=== PATIENT | female | born 1955 | race Caucasian/White ===

== ENCOUNTER 2017-03-11 14:12 | Emergency (ER) | payer OTHER ==
[~2017-03-11] VITALS: Ht 157.5 cm; Wt 70.3 kg
[~2017-03-11 14:12] MED LIST: SIMV20TA1 PO
[2017-03-11 15:10] VITALS: BP 148/78
--- NOTE | 2017-03-11 15:54 | NUR ---
PT TO BED 8
--- NOTE | 2017-03-11 16:05 | NUR ---
Patient being evaluated by Dr. Vang at bedside.
[2017-03-11] MEDS ORDERED: HYDROcodone/APAP 5/325 MG 1 TAB TAB PO ONE (16:10)
[2017-03-11] MEDS ORDERED: ASPIRIN 325 MG TAB PO ONE (16:10)
--- NOTE | 2017-03-11 16:11 | NUR ---
61/F c/o right shoulder pain since yesterday. Pt denies injury or trauma. No deformity noted. AOX4, ambulatory with steady gait. VSS.
--- NOTE | 2017-03-11 16:15 | NUR ---
Lab at bedside for blood draw.
[2017-03-11 16:23] LABS: BASOPHILS # (AUTO) 0.2 K/uL (0.00-0.22); BASOPHILS % (AUTO) 2.7 % (0.0-2.0); EOSINOPHILS # (AUTO) 0.2 K/uL (0-0.4); EOSINOPHILS % (AUTO) 2.5 % (0.0-4.0); HEMATOCRIT 41.5 % (36-48); HEMOGLOBIN 13.8 g/dL (12.0-16.0); LYMPHOCYTES # (AUTO) 2.7 K/uL (2.5-16.5); LYMPHOCYTES % (AUTO) 34.5 % (20.5-51.1); MEAN CORPUSCULAR HEMOGLOBIN 29 pg (27-31); MEAN CORPUSCULAR HGB CONC 33 g/dL (33-37); MEAN CORPUSCULAR VOLUME 88 fL (80-94); MONOCYTES # (AUTO) 0.5 K/uL (0.8-1.0); MONOCYTES % (AUTO) 6.2 % (1.7-9.3); NEUTROPHILS # (AUTO) 4.3 K/uL (1.8-7.7); NEUTROPHILS % (AUTO) 54.1 % (42.2-75.2); PLATELET COUNT (AUTO) 218 K/uL (140-450); RED CELL DISTRIBUTION WIDTH 12.7 % (11.6-13.7); WHITE BLOOD COUNT (AUTO) 7.9 K/uL (4.8-10.8)
[2017-03-11 16:42] LABS: ALBUMIN 3.8 g/dL (3.4-5.0); ANION GAP 12.8 (8-16); CARBON DIOXIDE 28.2 mmol/L (21-32); CREATININE 0.6 mg/dL (0.6-1.3); TOTAL BILIRUBIN 0.2 mg/dL (0.0-1.0)
[2017-03-11 17:29] VITALS: BP 140/76
--- NOTE | 2017-03-11 17:29 | NUR ---
Patient discharged with v/s stable. Written and verbal after care instructions given and explained. Patient alert, oriented and verbalized understanding of instructions. Ambulatory with steady gait. All questions addressed prior to discharge. ID band removed. Patient advised to follow up with PMD. Rx of Naproxen 500mg given. Patient educated on indication of medication including possible reaction and side effects. Opportunity to ask questions provided and answered.
== END 2017-03-11 17:29 | disposition home or self-care (01) ==
LOC: MED 14:12
DX: R07.89 Other chest pain (principal); M25.511 Pain in right shoulder; Z79.899 Other long term (current) drug therapy
CPT/HCPCS: 36415; 71020; 80053; 84484; 85025; 85379; 93005; 99285

== ENCOUNTER 2017-10-20 12:01 | Emergency (ER) | payer OTHER ==
[~2017-10-20] VITALS: Ht 157.5 cm; Wt 75.3 kg
[2017-10-20 12:06] VITALS: BP 146/59
--- NOTE | 2017-10-20 12:14 | NUR ---
Pt taken to bed 12.
[2017-10-20] MEDS ORDERED: KETOROLAC 30 MG/ML VIAL IVP ONE (12:20)
[2017-10-20] MEDS ORDERED: PROCHLORPERAZINE 10 MG/2 ML VIAL IVP ONE (12:20)
[2017-10-20] MEDS ORDERED: NACL 0.9% 1,000 ML IV ONE (12:20)
--- NOTE | 2017-10-20 12:48 | NUR ---
pt taken to ct via w/c accompanied by radio repairer
[2017-10-20 12:58] LABS: BASOPHILS # (AUTO) 0.1 K/uL (0.00-0.22); BASOPHILS % (AUTO) 0.8 % (0.0-2.0); EOSINOPHILS # (AUTO) 0.2 K/uL (0-0.4); EOSINOPHILS % (AUTO) 2.8 % (0.0-4.0); HEMATOCRIT 40.2 % (36-48); HEMOGLOBIN 13.1 g/dL (12.0-16.0); LYMPHOCYTES # (AUTO) 2.4 K/uL (2.5-16.5); LYMPHOCYTES % (AUTO) 34.5 % (20.5-51.1); MEAN CORPUSCULAR HEMOGLOBIN 29 pg (27-31); MEAN CORPUSCULAR HGB CONC 33 g/dL (33-37); MEAN CORPUSCULAR VOLUME 89.9 fL (80-94); MONOCYTES # (AUTO) 0.4 K/uL (0.8-1.0); MONOCYTES % (AUTO) 5.8 % (1.7-9.3); NEUTROPHILS # (AUTO) 3.9 K/uL (1.8-7.7); NEUTROPHILS % (AUTO) 56.1 % (42.2-75.2); PLATELET COUNT (AUTO) 208 K/uL (140-450); RED BLOOD CELL COUNT(AUTO) 4.47 MIL/uL (4.20-5.40); RED CELL DISTRIBUTION WIDTH 13.4 % (11.6-13.7); WHITE BLOOD COUNT (AUTO) 6.9 K/uL (4.8-10.8)
--- NOTE | 2017-10-20 13:02 | NUR ---
PT COMES TO ER WITH COMPLAINTS OF DIZZINESS X 2 DAYS, WORSE WHEN GETTING UP FROM A SITTING OR LAYING DOWN POSITION, STATES "IT FEELS LIKE THE ROOM IS SPINNING". WHEN THIS HAPPENED TODAY SHE FELT SOME PRESSURE LIKE PAIN 8/10 TO THE RIGHT ANTERIOR CHEST WALL WITH MILD SOB. RESP ARE EVEN AND UNLABORED AT THIS TIME, BUT PT REPORTS MILD SOB WITH MILD EXERTION. SKIN W/D/I. PT ALSO REPORTS NAUSEA, DENIES VOMITTING/FEVERS/CHILLS. ABD SOFT, NT, +BS X 4 QUADS. WILL CONT TO MONITOR, PT ON MONITOR-SR
[2017-10-20 13:15] LABS: ALBUMIN 3.7 g/dL (3.4-5.0); ANION GAP 11.8 (8-16); CARBON DIOXIDE 29.9 mmol/L (21-32); CREATININE 0.6 mg/dL (0.6-1.3); POTASSIUM 3.7 mmol/L (3.5-5.1); TOTAL BILIRUBIN 0.3 mg/dL (0.0-1.0)
[2017-10-20 13:40] VITALS: BP 129/61
[2017-10-20 13:41] LABS: PROTHROMBIN TIME 10.8 secs (10.8-13.4)
--- NOTE | 2017-10-20 13:41 | NUR ---
Patient discharged with v/s stable. Written and verbal after care instructions given and explained. Patient alert, oriented and verbalized understanding of instructions. Ambulatory with steady gait. All questions addressed prior to discharge. ID band removed. Patient advised to follow up with PMD. Rx of ANTIVERT given. Patient educated on indication of medication including possible reaction and side effects. Opportunity to ask questions provided and answered.
== END 2017-10-20 13:41 | disposition home or self-care (01) ==
LOC: MED 12:01
DX: R51 Headache (principal); R42 Dizziness and giddiness; R11.0 Nausea; E78.5 Hyperlipidemia, unspecified; R73.03 Prediabetes
CPT/HCPCS: 36415; 70450; 80053; 83880; 84484; 85025; 85610; 85730; 93005; 96361; 96374; 96375; 99285; J0780; J1885; J7030

== ENCOUNTER 2017-10-22 09:29 | Emergency (ER) | payer OTHER ==
[~2017-10-22] VITALS: Ht 157.5 cm; Wt 70.3 kg
[2017-10-22 09:34] VITALS: BP 131/83
--- NOTE | 2017-10-22 09:39 | NUR ---
PATIENT AMBULATED TO BED 3 AT THIS TIME.
--- NOTE | 2017-10-22 09:40 | NUR ---
62 F PRESENTS TO ER WITH C/O ALLERGIC REACTION x 3 HOURS AGO. PT DENIES INGESTING ANY NEW FOOD OR MEDICATIONS, DENIES A CHANGE IN DETERGENT. PT A&O X 4. GCS 15. AMBULATORY W/ STEADY GAIT. PT DENIES ANY SOB OR DYSPNEA AT THIS TIME. AIRWAY IS PATENT. MINOR SWELLING NOTED TO THE FOREHEAD BETWEEN THE EYEBROWS. RESPIRATIONS ARE EVEN AND UNLABORED AT THIS TIME. LUNG SOUNDS ARE BILATERALLY CLEAR AT THIS TIME. ER MD ELDER NOTIFIED OF PT STATUS. SAFETY PRECAUTIONS IN PLACE. PT NEEDS MET AT THIS TIME. WILL CONTINUE TO MONITOR. HX: HIGH CHOLESTEROL MEDS: SIMVASTATIN 20MG, OTC BENADRYL
[2017-10-22 11:04] VITALS: BP 131/78
--- NOTE | 2017-10-22 11:05 | NUR ---
Patient discharged with v/s stable. Written and verbal after care instructions given and explained. Patient alert, oriented and verbalized understanding of instructions. Ambulatory with steady gait. All questions addressed prior to discharge. ID band removed. Patient advised to follow up with PMD. Rx of Benadryl and Prednisone given. Patient educated on indication of medication including possible reaction and side effects. Opportunity to ask questions provided and answered.
== END 2017-10-22 11:05 | disposition home or self-care (01) ==
LOC: MED 09:29
DX: T78.40XA Allergy, unspecified, initial encounter (principal); E78.00 Pure hypercholesterolemia, unspecified; X58.XXXA Exposure to other specified factors, initial encounter
CPT/HCPCS: 99283

== ENCOUNTER 2018-07-01 19:43 | Emergency (ER) | payer OTHER ==
[~2018-07-01] VITALS: Ht 157.5 cm; Wt 70.3 kg
[2018-07-01 19:43] VITALS: BP 137/63
--- NOTE | 2018-07-01 19:43 | NUR ---
Patient BIBA BLS, transferred to bed 7. RN evaluating patient at bedside.
--- NOTE | 2018-07-01 19:45 | NUR ---
63 yo females biba c/o allergic reaction. pt stated she was eating tacos/ salsa and then started to feel itchy all over scalp. pt denies pmh and has nka. pt aaox4, sitting up in bed. lungs clear even unlabored. denies cp/ sob @ this time. pt states she feels better and does not have the itchiness @ this time. no acute distress noted.
--- NOTE | 2018-07-01 19:58 | NUR ---
Dr. Angeles evaluating patient at bedside.
--- NOTE | 2018-07-01 20:32 | NUR ---
Patient discharged with v/s stable. Written and verbal after care instructions given and explained. Patient alert, oriented and verbalized understanding of instructions. Ambulatory with steady gait. All questions addressed prior to discharge. ID band removed. Patient advised to follow up with PMD. Rx of Benadryl given. Patient educated on indication of medication including possible reaction and side effects. Opportunity to ask questions provided and answered.
[2018-07-01 20:41] VITALS: BP 127/63
== END 2018-07-01 20:32 | disposition home or self-care (01) ==
LOC: MED 19:43
DX: T78.1XXA Other adverse food reactions, not elsewhere classified, initial encounter (principal); Z79.899 Other long term (current) drug therapy
CPT/HCPCS: 99283

== ENCOUNTER 2018-10-13 10:58 | Emergency (ER) | payer OTHER ==
[~2018-10-13] VITALS: Ht 157.5 cm; Wt 72.6 kg
[2018-10-13 11:12] VITALS: BP 154/78
--- NOTE | 2018-10-13 11:17 | NUR ---
PT AMBULATED TO ER BED 6
[2018-10-13] MEDS ORDERED: hydrOXYzine HCL 25 MG TAB PO ONE (11:30)
[2018-10-13] MEDS ORDERED: KETOROLAC 60 MG/2 ML VIAL IM ONE (11:30)
[2018-10-13] MEDS ORDERED: MECLIZINE 25 MG TAB PO ONE (11:30)
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
--- NOTE | 2018-10-13 11:36 | NUR ---
PT TAKEN TO CT VIA WHEELCHAIR
[2018-10-13 14:34] VITALS: BP 130/73
== END 2018-10-13 14:35 | disposition home or self-care (01) ==
LOC: MED 10:58
DX: S00.33XA Contusion of nose, initial encounter (principal); M79.641 Pain in right hand; E78.00 Pure hypercholesterolemia, unspecified; Z79.899 Other long term (current) drug therapy; W18.09XA Striking against other object with subsequent fall, initial encounter; Y93.02 Activity, running; Y92.89 Other specified places as the place of occurrence of the external cause; Y99.8 Other external cause status
CPT/HCPCS: 70450; 70486; 73130; 96372; 99284; J1885; J8597

== ENCOUNTER 2022-05-27 11:06 | Emergency (ER) | payer OTHER, MEDICAID ==
[~2022-05-27] VITALS: Ht 157.5 cm; Wt 70.9 kg
[~2022-05-27 11:06] MED LIST changes: +SIMV-372 PO; -SIMV20TA1 PO
[2022-05-27 11:19] VITALS: BP 161/64
[2022-05-27] MEDS ORDERED: NITR100C7 PO (13:25)
[2022-05-27 13:37] VITALS: BP 159/72
== END 2022-05-27 13:37 | disposition home or self-care (01) ==
LOC: MED 11:06
DX: M47.896 Other spondylosis, lumbar region (principal); N39.0 Urinary tract infection, site not specified; E11.9 Type 2 diabetes mellitus without complications; Z79.899 Other long term (current) drug therapy
CPT/HCPCS: 72100; 73562; 81002; 99284

== ENCOUNTER 2022-11-10 09:13 | Emergency (ER) | payer OTHER ==
[~2022-11-10] VITALS: Ht 157.5 cm; Wt 72.6 kg
[~2022-11-10 09:13] MED LIST changes: +NITR100C7 PO
[2022-11-10 09:29] VITALS: BP 141/66
--- NOTE | 2022-11-10 09:38 | NUR ---
ambulated to bed 1
--- NOTE | 2022-11-10 09:38 | NUR ---
PT AMBULATED TO BED 1
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
[2022-11-10] MEDS ORDERED: ACETAMINOPHEN EXTRA STRENGTH 500 MG TAB PO ONE (10:00)
[2022-11-10] MEDS ORDERED: DEXAMETHASONE 10 MG/ML VIAL IM ONE (10:00)
[2022-11-10] MEDS ORDERED: NAPR-1704 PO (10:38)
[2022-11-10 11:32] VITALS: BP 128/80
--- NOTE | 2022-11-10 11:32 | NUR ---
Patient discharged with v/s stable. Written and verbal after care instructions FOR CHEST WALL PAIN given and explained. Patient verbalized understanding. Ambulatory with steady gait. All questions addressed prior to discharge. Advised to follow up with PMD.
--- NOTE | 2022-11-10 11:40 | NUR ---
The patient's care was reviewed and supervised by Modesta Harrington RN.
== END 2022-11-10 11:32 | disposition home or self-care (01) ==
LOC: MED 09:13
DX: R07.89 Other chest pain (principal); M54.9 Dorsalgia, unspecified; Z79.899 Other long term (current) drug therapy
CPT/HCPCS: 71045; 93005; 96372; 99283; J1100; Q0092

== ENCOUNTER 2022-11-17 16:45 | Inpatient (IN) | payer OTHER ==
[~2022-11-17] VITALS: Ht 157.5 cm; Wt 72.1 kg
--- NOTE | 2022-11-17 16:51 | NUR ---
AMB. TO BED W NO DISTRESS.
[2022-11-17 16:57] VITALS: BP 154/67
[2022-11-17] MEDS ORDERED: ACETAMINOPHEN 325 MG TAB PO ONE (17:30)
[2022-11-17] MEDS ORDERED: LIDOCAINE 5% 1 EA PATCH TP ONE (17:30)
--- NOTE | 2022-11-17 17:52 | NUR ---
X-Ray at bedside.
[2022-11-17 17:55] LABS: BASOPHILS # (AUTO) 0.1 K/uL (0.00-0.22); BASOPHILS % (AUTO) 0.5 % (0.0-2.0); EOSINOPHILS # (AUTO) 0.1 K/uL (0-0.4); EOSINOPHILS % (AUTO) 0.7 % (0.0-4.0); HEMATOCRIT 38.5 % (36-48); HEMOGLOBIN 12.8 g/dL (12.0-16.0); LYMPHOCYTES # (AUTO) 4.3 K/uL (2.5-16.5); LYMPHOCYTES % (AUTO) 34.5 % (20.5-51.1); MEAN CORPUSCULAR HEMOGLOBIN 30 pg (27-31); MEAN CORPUSCULAR HGB CONC 33 g/dL (33-37); MEAN CORPUSCULAR VOLUME 88.9 fL (80-94); MONOCYTES # (AUTO) 1.1 K/uL (0.8-1.0); MONOCYTES % (AUTO) 8.9 % (1.7-9.3); NEUTROPHILS # (AUTO) 6.9 K/uL (1.8-7.7); NEUTROPHILS % (AUTO) 55.4 % (42.2-75.2); PLATELET COUNT (AUTO) 255 K/uL (140-450); RED BLOOD CELL COUNT(AUTO) 4.34 MIL/uL (4.20-5.40); RED CELL DISTRIBUTION WIDTH 13.4 % (11.6-13.7); WHITE BLOOD COUNT (AUTO) 12.4 K/uL (4.8-10.8)
[2022-11-17 18:14] LABS: ALBUMIN 3.4 g/dL (3.4-5.0); ANION GAP 8.3 (8-16); CARBON DIOXIDE 27.7 mmol/L (21-32); CREATININE 0.7 mg/dL (0.6-1.3); TOTAL BILIRUBIN 0.2 mg/dL (0.0-1.0)
--- NOTE | 2022-11-17 19:35 | NUR ---
67 Y/O F from home presents with chest pain 8/10 intermittent, tightness. pt denies any NVD, skin intact, A&Ox4, pt stated she has pain when ambulatory. pmh-hyperlipidema, arthritis NKA
--- NOTE | 2022-11-17 19:48 | NUR ---
pt ambulatory to restroom
--- NOTE | 2022-11-17 20:40 | NUR ---
Dr. Frazier examining patient.
[2022-11-17] MEDS ORDERED: KETOROLAC 30 MG/ML VIAL IVP ONE (20:45)
--- NOTE | 2022-11-17 20:54 | NUR ---
COVID-19 swab collected and sent to lab.
--- NOTE | 2022-11-17 21:05 | NUR ---
covid swabs walked to lab.
--- NOTE | 2022-11-17 23:10 | NUR ---
Patient will be admitted to care of Dr. Gibbons. Admited to tele. Will go to room 106B. Belongings list completed. Report to Lam BLANCO.
[2022-11-17] MEDS ORDERED: ACETAMINOPHEN 325 MG TAB PO PRN (23:15)
[2022-11-17] MEDS ORDERED: ONDANSETRON 4 MG/2 ML VIAL IM/IVP PRN (23:15)
[2022-11-17] MEDS ORDERED: DOCUSATE SODIUM 100 MG GELCAP PO PRN (23:15)
[2022-11-17] MEDS ORDERED: ZOLPIDEM 5 MG TAB PO PRN (23:15)
[2022-11-17] MEDS ORDERED: guaiFENesin DM 200/20 MG-10 ML 10 ML UDC PO PRN (23:15)
[2022-11-17] MEDS ORDERED: POTASSIUM CHLORIDE 10 MEQ TABER PO PRN (23:15)
[2022-11-17] MEDS: NACL 0.9% 1,000 ML IV SCH (23:15)
[2022-11-17] MEDS ORDERED: PNEUMOCOCCAL VACCINE 23 MCG/0.5 ML VIAL IMVAC SCH (23:55)
[2022-11-17 23:57] LABS: PROTHROMBIN TIME 9.7 secs (10.8-13.4)
[2022-11-18] VITALS: BP 105/48
[2022-11-18 00:32] LABS: CHOL/HDL RATIO 4.3 (1-4.5); FREE T4 (FREE THYROXINE) 1.08 ng/dL (0.76-1.46)
[2022-11-18 00:33] LABS: PHOSPHORUS 2.8 mg/dL (2.5-4.9)
[2022-11-18 00:34] LABS: THYROID STIMULATING HORMONE 1.6 uIU/mL (0.34-3.74)
[2022-11-18 00:42] LABS: APPEARANCE,URINE CLEAR (CLEAR); BILIRUBIN,URINE NEGATIVE (NEGATIVE); BLOOD, URINE NEGATIVE (NEGATIVE); COLOR,URINE YELLOW (YELLOW); LEUKOCYTE ESTERASE ,URINE NEGATIVE (NEGATIVE); NITRITE, URINE NEGATIVE (NEGATIVE); UGLUCOSE NEGATIVE (NEGATIVE)
[2022-11-18] MEDS: MORPHINE SULFATE 2 MG/ML SYR IVP PRN ×4 (01:02→20:27)
[2022-11-18 01:08] LABS: BARBITURATE, URINE NEGATIVE ng/ml (NEG <=200)
[2022-11-18 01:09] LABS: OPIATE, URINE NEGATIVE ng/mL (NEG <=2000); PHENCYCLIDINE SCREEN,URINE NEGATIVE ng/mL (NEG <=25)
[2022-11-18 01:10] LABS: CANNABINOID, URINE NEGATIVE ng/mL (NEG <=50)
[2022-11-18 01:13] LABS: COCAINE, URINE NEGATIVE ng/mL (NEG <=300)
[2022-11-18 01:17] LABS: BENZODIAZEPINE, URINE NEGATIVE ng/mL (NEG <=200)
[2022-11-18 04:00] VITALS: BP 153/74
[2022-11-18 06:44] LABS: BASOPHILS % (AUTO) 0.4 % (0.0-2.0); EOSINOPHILS # (AUTO) 0.2 K/uL (0-0.4); EOSINOPHILS % (AUTO) 2.7 % (0.0-4.0); HEMATOCRIT 39.3 % (36-48); HEMOGLOBIN 13.1 g/dL (12.0-16.0); LYMPHOCYTES % (AUTO) 49.8 % (20.5-51.1); MEAN CORPUSCULAR HEMOGLOBIN 30 pg (27-31); MEAN CORPUSCULAR HGB CONC 33 g/dL (33-37); MEAN CORPUSCULAR VOLUME 89.1 fL (80-94); MONOCYTES # (AUTO) 0.7 K/uL (0.8-1.0); MONOCYTES % (AUTO) 8.8 % (1.7-9.3); NEUTROPHILS # (AUTO) 3.1 K/uL (1.8-7.7); NEUTROPHILS % (AUTO) 38.3 % (42.2-75.2); PLATELET COUNT (AUTO) 230 K/uL (140-450); RED BLOOD CELL COUNT(AUTO) 4.41 MIL/uL (4.20-5.40); RED CELL DISTRIBUTION WIDTH 13.4 % (11.6-13.7)
[2022-11-18 06:59] LABS: CARBON DIOXIDE 30.9 mmol/L (21-32); CREATININE 0.7 mg/dL (0.6-1.3)
[2022-11-18 07:27] LABS: ANION GAP 8.3 (8-16); POTASSIUM 4.2 mmol/L (3.5-5.1)
--- NOTE | 2022-11-18 07:30 | NUR ---
RECEIVED REPORT FROM GREIGE MENDER NURSE. POC DISCUSSED. PT CURRENTLY RESTING WITH CHEST RISING AND FALLING. NO ACUTE S/S OF DISTRESS. ALL SAFETY MEASURES IN PLACE, CALL LIGHT WITHIN REACH.
[2022-11-18 08:00] VITALS: BP 139/65
--- NOTE | 2022-11-18 08:15 | NUR ---
PHARMACIST STATED PNA VACCINE PLACED IN FRIDGE TO BE ADMINISTERED AT DISCHARGE. WILL ENDORSE TO UPCOMING SHIFTS.
[2022-11-18] MEDS: PANTOPRAZOLE 40 MG TABEC PO SCH (08:23)
--- NOTE | 2022-11-18 09:04 | NUR ---
PATIENT HAS BEEN SCREENED AND CATEGORIZED LOW NUTRITION RISK. PATIENT WILL BE SEEN WITHIN 7 DAYS OF ADMISSION. 11/17/22-11/24/22 REVIEWED BY PK MCKEON [address]
--- NOTE | 2022-11-18 09:54 | NUR ---
PT INFORMED CHEST PAIN IS 5/10. OFFERED HER NORCO FOR PAIN. PT DECLINED PAIN MED.
[2022-11-18] MEDS: ASPIRIN 81 MG TAB.CHEW PO SCH (10:30)
[2022-11-18 12:00] VITALS: BP 127/67
--- NOTE | 2022-11-18 12:41 | NUR ---
DC PLANNING ASSESSMENT COMPLETE PLEASE REFER TO ASSESSMENT FOR ADDITIONAL DETAILS DC PLAN IS FOR PT TO RETURN HOME WITH FAMILY PROVIDING TRANSPORTATION, WHEN MEDICALLY CLEARED BY PHYSICIAN Addendum: 11/18/22 at 1242 by Phil LEHMAN Amended: Links added.
--- NOTE | 2022-11-18 14:21 | NUR ---
PT HAVING CHEST PAIN WHEN TAKING A DEEP BREATH 02/18. GAVE MORPHINE FOR PAIN.
[2022-11-18 16:00] VITALS: BP 147/63
[2022-11-18] MEDS: ATORVASTATIN 20 MG TAB PO SCH (17:06)
[2022-11-18] MEDS: NACL 0.9% 1,000 ML IV SCH (17:06)
--- NOTE | 2022-11-18 19:00 | NUR ---
RECEIVED PT FROM MORNING SHIFT NURSE. PT IS AOX4, AMBULATORY, RWANDAN SPEAKING, ABLE TO VERBALIZE NEEDS AND ABLE TO FOLLOW COMMANDS. PT IS ON ROOM AIR AND ON CARDIAC DIET. PT HAS IV ON RIGHT FOREARM GAUGE 22 RUNNING WITH NS AT 60ML/HR. NO COMPLAIN OF PAIN. NO S/S OF RESPIRATORY DISTRESS. ALL SAFETY MEASURES IMPLEMENTED. BED IN LOW POSITION, BED WHEELS ON LOCK AND CALL LIGHT WITHIN REACH.
[2022-11-18 20:00] VITALS: BP 140/61
--- NOTE | 2022-11-18 20:27 | NUR ---
PRN PAIN MEDICATION WAS GIVEN TO PT DUE TO CHEST PAIN WITH PAIN SCALE OF 6/10. ALL SAFETY MEASURES IMPLEMENTED. BED IN LOW POSITION, BED WHEELS ON LOCK AND CALL LIGHT WITHIN REACH.
--- NOTE | 2022-11-19 | NUR ---
PT IS ON SLEEP. CHEST RISE AND FALL SYMMTERICALLY NOTED. RESPIRATION IS EVEN AND UNLABORED. ALL SAFETY MEASURES IMPLEMENTED. BED IN LOW POSITION, BED WHEELS ON LOCK AND CALL LIGHT WITHIN REACH.
--- NOTE | 2022-11-19 02:00 | NUR ---
ASSISTED PT TO RESTROOM. NO COMPLAIN OF PAIN. NO S/S OF RESPIRATORY DISTRESS NOTED. ALL SAFETY MEASURES IMPLEMENTED. BED IN LOW POSITION, BED WHEELS ON LOCK AND CALL LIGHT WITHIN REACH.
--- NOTE | 2022-11-19 04:00 | NUR ---
CHECKED THE PT STILL ON SLEEP. CHEST RISE AND FALL SYMMETRICALLY NOTED. RESPIRATION IS EVEN AND UNLABORED. ALL SAFETY MEASURES IMPLEMENTED. BED IN LOW POSITION, BED WHEELS ON LOCK AND CALL LIGHT WITHIN REACH.
[2022-11-19 06:43] LABS: BASOPHILS # (AUTO) 0.1 K/uL (0.00-0.22); BASOPHILS % (AUTO) 0.7 % (0.0-2.0); EOSINOPHILS # (AUTO) 0.2 K/uL (0-0.4); EOSINOPHILS % (AUTO) 2.2 % (0.0-4.0); HEMATOCRIT 41.9 % (36-48); LYMPHOCYTES # (AUTO) 2.8 K/uL (2.5-16.5); LYMPHOCYTES % (AUTO) 41.3 % (20.5-51.1); MEAN CORPUSCULAR HEMOGLOBIN 30 pg (27-31); MEAN CORPUSCULAR HGB CONC 34 g/dL (33-37); MEAN CORPUSCULAR VOLUME 89.5 fL (80-94); MONOCYTES # (AUTO) 0.5 K/uL (0.8-1.0); MONOCYTES % (AUTO) 7.7 % (1.7-9.3); NEUTROPHILS # (AUTO) 3.3 K/uL (1.8-7.7); NEUTROPHILS % (AUTO) 48.1 % (42.2-75.2); PLATELET COUNT (AUTO) 239 K/uL (140-450); RED BLOOD CELL COUNT(AUTO) 4.68 MIL/uL (4.20-5.40); RED CELL DISTRIBUTION WIDTH 13.2 % (11.6-13.7); WHITE BLOOD COUNT (AUTO) 6.9 K/uL (4.8-10.8)
[2022-11-19 07:00] LABS: ANION GAP 9.9 (8-16); CARBON DIOXIDE 30.4 mmol/L (21-32); CREATININE 0.6 mg/dL (0.6-1.3); POTASSIUM 4.3 mmol/L (3.5-5.1)
--- NOTE | 2022-11-19 07:33 | NUR ---
PT IS STABLE. ENDORSED PT TO MORNING SHIFT NURSE FOR CONTINUITY OF CARE.
[2022-11-19 08:00] VITALS: BP 151/76
--- NOTE | 2022-11-19 08:00 | NUR ---
received patient resting comfortably in bed, not in any form of distress,shift assessment done and documented, plan of care discussed, will continue to monitor.
[2022-11-19] MEDS: NACL 0.9% 1,000 ML IV SCH (08:35)
[2022-11-19 09:07] LABS: T4 (THYROXINE) 8.2 ug/dL (4.5-12.0)
[2022-11-19] MEDS: ASPIRIN 81 MG TAB.CHEW PO SCH (10:02)
[2022-11-19] MEDS: PANTOPRAZOLE 40 MG TABEC PO SCH (10:02)
[2022-11-19] MEDS ORDERED: KETOROLAC 30 MG/ML VIAL IM SCH (10:19)
--- NOTE | 2022-11-19 12:50 | NUR ---
DC PLANN[age] YRS OLD FEMALE PATIENT WAS ADMITTED FROM HOME WITH A DX OF CHEST PAIN. PATIENT HAS A HX OF HLD. CXR SHOWED PNEUMONIA. RAPID COVID TEST NEGATIVE. ADMINISTERED IVF, IV ABX ROCEPHIN. CONSULTED WITH [employer] PL[employer] SPECIALIST. DC PLAN TO GO HOME WHEN STABLE. CM TO FOLLOW
[2022-11-19] MEDS: HYDROcodone/APAP 7.5/325 MG 1 TAB PO PRN (15:46)
[2022-11-19 16:00] VITALS: BP 134/72
[2022-11-19] MEDS: ATORVASTATIN 20 MG TAB PO SCH (17:52)
--- NOTE | 2022-11-19 19:30 | NUR ---
RECEIVED REPORT FROM DAY SHIFT NURSE ADZE FOR CONTINUITY OF CARE. PATIENT IS A&O X4. PATIENT IS ON ROOM AIR, BREATHING IS NORMAL WITH SYMMETRICAL RISE AND FALL OF CHEST. IV IS A 22 RFA, RUNNING NS 60. PATIENT IS AWAKE, SITTING SEMI-FOWLERS IN BED VISITING WITH FAMILY. BED IS IN LOWEST POSITION, WHEELS LOCKED, CALL LIGHT IN PLACE. WILL CONTINUE TO OBSERVE PATIENT.
[2022-11-19 20:00] VITALS: BP 120/65
--- NOTE | 2022-11-19 22:00 | NUR ---
PATIENT'S IV BECAME INFILTRATED AND A NEW IV WAS PLACED BY FRANCIS YU. NEW IV IS L WRIST 22G. PATIENT IS CURRENTLY SLEEPING, LYING IN SEMI-FOWLERS POSITION. BREATHING IS NORMAL WITH SYMMETRICAL RISE AND FALL OF CHEST. WILL CONTINUE TO OBSERVE PATIENT.
--- NOTE | 2022-11-20 01:00 | NUR ---
PATIENT HAS BEEN SLEEPING THROUGHOUT THE NIGHT. BREATHING IS NORMAL WITH SYMMETRICAL RISE AND FALL OF CHEST. IV IS STILL RUNNING NS AT 60. WILL CONTINUE TO OBSERVE PATIENT.
[2022-11-20] MEDS: NACL 0.9% 1,000 ML IV SCH (01:15)
[2022-11-20 04:00] VITALS: BP 138/68
--- NOTE | 2022-11-20 05:00 | NUR ---
PATIENT SLEPT THROUGHOUT THE NIGHT. IV IS STILL RUNNING NS AT 60. BREATHING IS NORMAL WITH SYMMETRICAL RISE AND FALL OF CHEST. WILL CONTINUE TO OBSERVE PATIENT.
[2022-11-20 06:49] LABS: BASOPHILS % (AUTO) 0.4 % (0.0-2.0); EOSINOPHILS # (AUTO) 0.2 K/uL (0-0.4); EOSINOPHILS % (AUTO) 1.9 % (0.0-4.0); HEMATOCRIT 40.3 % (36-48); HEMOGLOBIN 13.2 g/dL (12.0-16.0); LYMPHOCYTES # (AUTO) 2.7 K/uL (2.5-16.5); LYMPHOCYTES % (AUTO) 33.3 % (20.5-51.1); MEAN CORPUSCULAR HEMOGLOBIN 29 pg (27-31); MEAN CORPUSCULAR HGB CONC 33 g/dL (33-37); MEAN CORPUSCULAR VOLUME 89.6 fL (80-94); MONOCYTES # (AUTO) 0.6 K/uL (0.8-1.0); MONOCYTES % (AUTO) 7.9 % (1.7-9.3); NEUTROPHILS # (AUTO) 4.6 K/uL (1.8-7.7); NEUTROPHILS % (AUTO) 56.5 % (42.2-75.2); PLATELET COUNT (AUTO) 241 K/uL (140-450); RED BLOOD CELL COUNT(AUTO) 4.49 MIL/uL (4.20-5.40); RED CELL DISTRIBUTION WIDTH 13.2 % (11.6-13.7); WHITE BLOOD COUNT (AUTO) 8.1 K/uL (4.8-10.8)
[2022-11-20 06:56] LABS: ANION GAP 9.5 (8-16); CARBON DIOXIDE 29.9 mmol/L (21-32); CREATININE 0.7 mg/dL (0.6-1.3); POTASSIUM 4.4 mmol/L (3.5-5.1)
--- NOTE | 2022-11-20 07:19 | NUR ---
RECEIVED REPORT FROM NIGHT NURSE JHONATAN FOR CONTINUITY OF CARE. INITIAL ASSESSMENT DONE. ALERT AND ORIENTED X 4. RESP. EVEN AND UNLABORED. IVF INFUSING WELL. IV SITE INTACT TO LT WRIST. NO C/O PAIN OR DISCOMFORT. CALL LIGHT KEPT WITHIN REACH. WILL CONTINUE TO MONITOR.
--- NOTE | 2022-11-20 07:21 | NUR ---
ENDORSED TO DAY SHIFT NURSE JOCELYN FOR CONTINUITY OF CARE. PATIENT IS STABLE.
[2022-11-20 08:00] VITALS: BP 132/65
--- NOTE | 2022-11-20 08:00 | NUR ---
Patient's Plan of Care was discussed and reviewed with MASTER YACHT: JOCELYN
[2022-11-20] MEDS: PANTOPRAZOLE 40 MG TABEC PO SCH (08:34)
[2022-11-20] MEDS: ASPIRIN 81 MG TAB.CHEW PO SCH (08:34)
--- NOTE | 2022-11-20 08:34 | NUR ---
SCHEDULED MEDICATIONS AND PRN COLACE WAS GIVEN. TOLERATED WELL.
[2022-11-20] MEDS ORDERED: ASPI81CT95 PO (10:35)
[2022-11-20] MEDS ORDERED: TRAM50TA3 PO (10:35)
[2022-11-20] MEDS: HYDROcodone/APAP 7.5/325 MG 1 TAB PO PRN (11:14)
--- NOTE | 2022-11-20 11:14 | NUR ---
PRN NORCO WAS GIVEN FOR PAIN MANAGEMENT. TOLERATED WELL.
--- NOTE | 2022-11-20 11:18 | NUR ---
ROCEPHIN IV WAS GIVEN BY CLEOPATRA RN. TOLERATED WELL.
--- NOTE | 2022-11-20 14:35 | NUR ---
PT LEFT. DISCHARGE TO HOME. TRANSPORTED VIA PRIVATE VEHICLE. ACCOMPANIED BY HER DAUGHTER. ALERT AND ORIENTED X 4. RESP. EVEN AND UNLABORED. SKIN INTACT. IV AND ID BAND REMOVED. DISCHARGED PAPERWORK SIGNED AND DISCUSS BY PT. PERSONAL BELONGINGS TAKEN. NO C/O PAIN OR DISCOMFORT. REMAINS STABLE.
== END 2022-11-20 14:35 | disposition home or self-care (01) | DRG 871 ==
LOC: MED 16:45 → MTU 22:33
PROVIDERS: ADMIT Family Medicine; ATTEND Family Medicine
DX: A41.9 Sepsis, unspecified organism (principal); J18.9 Pneumonia, unspecified organism; E78.00 Pure hypercholesterolemia, unspecified; M94.0 Chondrocostal junction syndrome [Tietze]; Z20.822 Contact with and (suspected) exposure to COVID-19; Z82.49 Family history of ischemic heart disease and other diseases of the circulatory system
CPT/HCPCS: 36415; 71045; 80048; 80053; 80305; 81003; 82150; 82948; 83036; 83690; 83735; 83880; 84100; 84436; 84439; 84443; 84479; 84484; 85025; 85379; 85610; 85730; 87081; 90732; 93005; 96374; 99285; J0696; J1885; J2270; J7060